=== PATIENT | male | born 1960 | race Caucasian/White ===

== ENCOUNTER → 2024-12-13 11:46 | Outpatient (BNVA) | payer BC, SELFPAY | PROVIDERS: PCP Family Medicine; Referring Provider Family Medicine; Visit Provider Internal Medicine Rheumatology | DX: M25.50 Pain in unspecified joint (principal); Z79.899 Other long term (current) drug therapy | CPT/HCPCS: 36415; 80076; 82306; 82565; 83520; 85025; 85651; 86140; 86160; 86162; 86235; 86255; 86376; 86480; 86704; 86803; 87340 ==

== ENCOUNTER 2025-01-12 08:44 | Outpatient (CLI) | payer BC, SELFPAY ==
[2025-01-12 09:23] LABS: Basophils % 0.6 %; Eosinophils # 0.1 10^3/uL (0.0-0.8); Eosinophils % 2.8 %; Hematocrit 39.8 % (37-53); Lymphocytes # 1.3 10^3/uL (0.8-4.8); Lymphocytes % 26.4 %; Mean Corpuscular HGB Conc 35.4 g/dL (30-55); Mean Corpuscular Hemoglobin 31.8 pg (27-33); Mean Corpuscular Volume 89.6 fl (82-101); Mean Platelet Volume 9.6 fL (7.4-10.4); Monocytes # 0.6 10^3/uL (0.2-0.9); Monocytes % 11.4 %; Neutrophils # 2.97 10^3/uL (1.8-7.7); Neutrophils % 58.4 %; Nucleated Red Blood Cells % 0 %; Platelet Count 223 10^3/cmm (157-399); Red Blood Count 4.44 10^6/uL (3.85-5.65); Red Cell Distribution Width 13.2 % (12.1-15.1); White Blood Count 5.08 10^3/uL (3.29-11.43)
[2025-01-12 09:40] LABS: Alanine Aminotransferase 18 U/L (0-41); Albumin Level 4.4 g/dL (3.5-5.2); Alkaline Phosphatase 68 U/L (40-130); Aspartate Amino Transferase 22 U/L (0-40); Globulin 2.2 g/dL (1.3-4.6); Glomerular Filtration Rate 97.6 mL/min (90-130); Total Bilirubin 0.8 mg/dL (0.15-1.2); Total Protein 6.6 g/dL (6.6-8.7)
[2025-01-12 09:42] LABS: Erythrocyte Sedimentation Rate < 1 mm/hr (0-10)
== END 2025-01-12 08:45 | disposition home or self-care (01) ==
PROVIDERS: PCP Family Medicine; Visit Provider Internal Medicine Rheumatology
DX: Z79.899 Other long term (current) drug therapy (principal)
CPT/HCPCS: 36415; 80076; 82565; 85025; 85651; 86140